=== PATIENT | female | born 1965 | race Hispanic/Latino ===

== ENCOUNTER 2018-07-08 15:07 | Inpatient (IN) | payer OTHER ==
[~2018-07-08] VITALS: Ht 154.9 cm; Wt 69.6 kg
[2018-07-08 15:50] LABS: APPEARANCE,URINE Clear (CLEAR); BILIRUBIN,URINE Negative (NEGATIVE); COLOR,URINE Yellow (YELLOW); GLUCOSE, URINE (UA) Negative (NEGATIVE); KETONES,URINE Negative (NEGATIVE); LEUKOCYTE ESTERASE ,URINE Negative (NEGATIVE); NITRATE,URINE Negative (NEGATIVE); OCCULT BLOOD,URINE Trace (NEGATIVE); PH,URINE 6.5 (5.0-8.0); PROTEIN,URINE Negative (NEGATIVE); UROBILINOGEN,URINE 0.2 mg/dL (0.2-1.0)
[2018-07-08] MEDS ORDERED: CHARCOAL/SORBITOL 50 GM/240 ML SUSP ONE (16:02)
[2018-07-08 16:14] LABS: BACTERIA,URINE Rare /HPF (None Seen); RBC,URINE None Seen /HPF (0-1); SQUAMOUS EPITHELIAL CELL,UR None Seen /HPF (0-2); WBC,URINE 0-1 /HPF (0-1)
[2018-07-08] MEDS ORDERED: ASPIRIN 325 MG TABLET ONE (16:29)
[2018-07-08 16:32] LABS: EOSINOPHILS % (AUTO) 19.3 % (0.0-8.0); HEMATOCRIT 39.6 % (36-48); LYMPHOCYTES % (AUTO) 24.5 % (21.0-51.0); MEAN CORPUSCULAR HEMOGLOBIN 32.3 pg (27.0-33.0); MEAN CORPUSCULAR HGB CONC 34.6 g/dL (32.0-36.0); MEAN CORPUSCULAR VOLUME 93.5 fL (79-99); MONOCYTES % (AUTO) 5.9 % (3.0-13.0); NEUTROPHILS % (AUTO) 49.3 % (40.0-77.0); NUCLEATED RED BLOOD CELLS 0.1 % (0.0-0.19); PLATELET COUNT (AUTO) 208 K/uL (130-400); RED BLOOD CELL COUNT(AUTO) 4.24 MIL/uL (4.00-5.50); WHITE BLOOD COUNT (AUTO) 9.6 K/uL (4.8-10.8)
[2018-07-08 16:49] LABS: POTASSIUM 3.9 mmol/L (3.5-5.1)
[2018-07-08 16:53] LABS: ALBUMIN 4.3 g/dL (3.5-5.0); BILIRUBIN,TOTAL 0.2 mg/dL (0.2-1.0); TOTAL PROTEIN, SERUM 7.8 g/dL (6.0-8.3)
[2018-07-08 17:39] LABS: ERYTHROCYTE SEDIMENTATION RATE 3 MM/HR (0-30)
[2018-07-08] MEDS ORDERED: ONDANSETRON HCL 4 MG/2 ML VIAL IV PRN (18:45)
[2018-07-08] MEDS ORDERED: ACETAMINOPHEN 325 MG TAB PO PRN (18:45)
[2018-07-08] MEDS ORDERED: IOHEXOL-350 75 ML VIAL IV ONE (19:00)
[2018-07-08] MEDS ORDERED: HYDRALAZINE HCL 20 MG/ML VIAL IV PRN (20:30)
[2018-07-08] MEDS ORDERED: HYDRALAZINE HCL 20 MG/ML VIAL ONE (20:31)
[2018-07-08] MEDS ORDERED: FAMOTIDINE/PF 20 MG/2 ML VIAL IV ONE (20:31)
[2018-07-08] MEDS: FAMOTIDINE/PF 20 MG/2 ML VIAL IV SCH (21:00)
[2018-07-08 21:20] VITALS: BP 135/80
--- NOTE | 2018-07-08 21:20 | NUR ---
Admission note: Admitted to floor via wheelchair. Amb indep. Fully awake and responsive. AOx3. Placed in bed comfortably. VS checked and recorded. Assessment done. ( See flow chart). Oriented to room and use of call light. Policies and procedures explained. Verbalized understanding. Home meds reconciled as ordered. Plan of care initiated. Kept monitored and observed for any unusual changes. Denies feeling of discomfort or weakness / numbness to extremities. No blurred vision or feeling of dizziness. No apparent distress noted. Cared for. For MRI of the brain and 2d-Echo in AM. For Neuro Consult in AM. Endorsed to Am shift accordingly.
[2018-07-08] MEDS ORDERED: CLOP75TA14 PO (23:51)
[2018-07-08] MEDS ORDERED: ASPI-555 PO (23:51)
[2018-07-08] MEDS ORDERED: LEVO100 PO (23:51)
[2018-07-08] MEDS ORDERED: LISI-613 PO (23:51)
[2018-07-09] VITALS: BP 138/76
[2018-07-09 04:00] VITALS: BP 134/70
[2018-07-09 06:26] LABS: HEMATOCRIT 41.7 % (36-48); MEAN CORPUSCULAR HEMOGLOBIN 32.5 pg (27.0-33.0); MEAN CORPUSCULAR HGB CONC 34.5 g/dL (32.0-36.0); MEAN CORPUSCULAR VOLUME 94.1 fL (79-99); NUCLEATED RED BLOOD CELLS 0.1 % (0.0-0.19); PLATELET COUNT (AUTO) 192 K/uL (130-400); RED BLOOD CELL COUNT(AUTO) 4.43 MIL/uL (4.00-5.50); RED CELL DISTRIBUTION WIDTH 14.7 % (11.0-15.5); WHITE BLOOD COUNT (AUTO) 7.1 K/uL (4.8-10.8)
[2018-07-09] MEDS: LEVOTHYROXINE 100 MCG TABLET PO SCH ×2 (06:33→08:30)
[2018-07-09 06:54] LABS: ALBUMIN 3.9 g/dL (3.5-5.0); BILIRUBIN,TOTAL 0.4 mg/dL (0.2-1.0); POTASSIUM 3.7 mmol/L (3.5-5.1); TOTAL PROTEIN, SERUM 7.4 g/dL (6.0-8.3)
[2018-07-09 07:01] LABS: HEMOGLOBIN A1C 5.9 % (4.0-6.0)
[2018-07-09 08:00] VITALS: BP 138/78
[2018-07-09] MEDS: FAMOTIDINE/PF 20 MG/2 ML VIAL IV SCH (08:29)
[2018-07-09] MEDS ORDERED: CLOPIDOGREL BISULFATE 75 MG TAB PO SCH (09:00)
[2018-07-09] MEDS ORDERED: ENOXAPARIN SODIUM 30 MG/0.3 ML SQ SCH (09:00)
[2018-07-09] MEDS ORDERED: LISINOPRIL 20 MG TABLET PO SCH (09:00)
[2018-07-09] MEDS ORDERED: ASPIRIN 81 MG EC TAB PO SCH (09:00)
[2018-07-09] MEDS ORDERED: GADODIAMIDE 10 MMOL/20 ML VIAL IV ONE (09:23)
--- NOTE | 2018-07-09 09:45 | NUR ---
COGNITIVE EVAL COMPLETE. COGNITIVE-LINGUISTIC ABILITIES WITHIN FUNCTIONAL LIMITS. PATIENT INFORMATION: Pt IS A 53 YEAR OLD MALE REFERRED FOR A COGNITIVE-LINGUISTIC EVALUATION SECONDARY TO DIAGNOSIS OF TIA. Pt COOPERATIVE DURING THE EVALUATION AND SERVED THE PRIMARY INFORMANT FOR MEDICAL AND SOCIAL HISTORY. Pt CURRENTLY ADMITTED SECONDARY TO TIA. Pt HAS A PAST MEDICAL HISTORY SIGNIFICANT FOR CVA X2, HYPERTENSION, HYPERLIPIDEMIA, LEFT CAROTID ENDARTERECTOMY, HYPOTHYROIDISM, X5, AND CURRENT SMOKER. EVALUATION: Pt AAOX3. Pt REQUESTS WANTS AND NEEDS INDEPENDENTLY. Pt INTELLIGIBLE AT 100% ACCURACY TO THE UNFAMILIAR LISTENER. Pt COMMUNICATING AT CONVERSATIONAL LEVEL WITH NO DEFICITS IDENTIFIED AT THIS TIME. Pt COMPLETED COGNITIVE-LINGUISTIC EVALUATION TARGETING: ORIENTATION, ATTENTION/CONCENTRATION, MEMORY (IMMEDIATE, SHORT-TERM AND LONG-TERM), PROBLEM SOLVING, LOGIC/REASONING/INFERENCE, THOUGHT ORGANIZATION, FUNCTIONAL MATH AND TELLING TIME. Pt ABLE TO COMPLETE TASKS WITH CORRECT AND TIMELY ANSWERS TO ALL SECTIONS. G-CODES SPOKEN LANGUAGE EXPRESSION: [id number] Addendum: 07/09/18 at 1159 by FELECIA MARTINEZ Amended: Links added.
--- NOTE | 2018-07-09 11:31 | NUR ---
DYSPHAGIA EVAL COMPLETE. -S/S OF ASPIRATION. RECOMMEND REGULAR, THIN LIQUID DIET; PILLS WHOLE WITH LIQUIDS. PATIENT INFORMATION: Pt IS A 53 Y.O. FEMALE REFERRED FOR A BEDSIDE DYSPHAGIA EVALUATION SECONDARY TO ADMITTING DIAGNOSIS TO RULE OUT TIA. Pt AAOX3 AND COOPERATIVE DURING THE EVALUATION. Pt HAS A PAST MEDICAL HISTORY SIGNIFICANT FOR CVA X2 (2014, 2016), HYPERTENSION, CAROTID ENDARTERECTOMY, HYPOTHYROIDISM, X5, CURRENT SMOKER. CHEST X-RAY NEGATIVE UPON ADMISSION. EVALUATION: SWALLOW FUNCTION AND EFFICIENCY WITHIN FUNCTIONAL LIMITS. ORAL MOTOR STRENGTH, COORDINATION, AND ROM WITHIN FUNCTIONAL LIMITS. LARYNGEAL ELEVATION/EXCURSION STRONG WITH TIMELY PHARYNGEAL RESPONSE. NO OVERT SIGNS OR SYMPTOMS OF ASPIRATION PRESENT AT BEDSIDE. VOCAL QUALITY CLEAR WITH NO THROAT CLEAR OR COUGH RESPONSE PRESENT. RECOMMENDATIONS: 1. REGULAR TEXTURE, THIN LIQUID DIET; PILLS WHOLE WITH LIQUIDS. 2. COMPENSATORY STRATEGIES (PROPHYLAXIS): *SEATED AT 90 DEGREE ANGLE G-CODES SWALLOWING: [id number] Addendum: 07/09/18 at 1147 by ERIS TOMAS [facility] Amended: Links added.
[2018-07-09 12:00] VITALS: BP 155/78
--- NOTE | 2018-07-09 13:45 | NUR ---
Nutrition Intervention: Nutrition consult due to R/O TIA. Pt. admitted with Dx of R/O TIA. Pt. NPO during visit earlier this morning- pending ELECTRONIC INSTALLER evaluation. S/P dysphagia evaluation- ELECTRONIC INSTALLER rec. Regular texture, thin liquids. Diet has been advanced to Regular. Labs reviewed(Alb 3.9, CHOL 261). LBM: 07/08/18. SR-19, elastic. BMI: 29, overweight. Recommendations: 1) Rec. Heart Healthy diet. 2) Continue to monitor pt's nutritional status. 3) Consult RD as nutrition concerns arise. Addendum: 07/09/18 at [address] Amended: Links added.
[2018-07-09] MEDS ORDERED: ATOR20TA65 PO (13:59)
[2018-07-09 16:00] VITALS: BP 143/82
[2018-07-09] MEDS ORDERED: ATORVASTATIN CALCIUM 20 MG TABLET PO SCH (21:00)
== END 2018-07-09 18:20 | disposition home or self-care (01) | DRG 68 ==
LOC: EDH 15:07 → OBSVTOIN 15:08 → EDHIP 15:08 → 3AH 21:05
PROVIDERS: ADMIT Internal Medicine; ATTEND Internal Medicine
DX: I65.21 Occlusion and stenosis of right carotid artery (principal); G45.9 Transient cerebral ischemic attack, unspecified; E03.9 Hypothyroidism, unspecified; E78.5 Hyperlipidemia, unspecified; F17.210 Nicotine dependence, cigarettes, uncomplicated; I10 Essential (primary) hypertension; I16.0 Hypertensive urgency; Z80.0 Family history of malignant neoplasm of digestive organs; Z86.73 Personal history of transient ischemic attack (TIA), and cerebral infarction without residual deficits; Z91.14 Patient's other noncompliance with medication regimen; Z84.1 Family history of disorders of kidney and ureter
CPT/HCPCS: 36415; 70450; 70496; 70498; 70553; 71045; 80053; 80061; 81001; 83036; 84484; 85025; 85027; 85651; 92522; 92610; 93005; 93306; A9579; G0378; J0360; J1650; J3490; Q9967

== ENCOUNTER 2018-11-09 17:05 | Emergency (ER) | payer SELFPAY ==
[~2018-11-09 17:05] MED LIST: ASPI-555 PO; ATOR20TA65 PO; CLOP75TA14 PO; LEVO100 PO; LISI-613 PO
[2018-11-09] MEDS ORDERED: ORPHENADRINE CITRATE 30 MG/ML ML ONE (17:38)
== END 2018-11-09 18:04 | disposition home or self-care (01) ==
LOC: EDH 17:05
DX: M62.838 Other muscle spasm (principal); M54.2 Cervicalgia; I10 Essential (primary) hypertension; E78.5 Hyperlipidemia, unspecified; Z86.73 Personal history of transient ischemic attack (TIA), and cerebral infarction without residual deficits; Z72.0 Tobacco use
CPT/HCPCS: 96372; 99283; J2360

== ENCOUNTER 2019-10-25 14:46 | Emergency (ER) | payer SELFPAY ==
[~2019-10-25 14:46] MED LIST changes: -ASPI-555 PO; +ASPI-556 PO
[2019-10-25 15:18] LABS: BASOPHILS % (AUTO) 0.6 % (0.0-5.0); EOSINOPHILS % (AUTO) 2.2 % (0.0-8.0); HEMATOCRIT 38.4 % (36-48); LYMPHOCYTES % (AUTO) 32.3 % (21.0-51.0); MEAN CORPUSCULAR HEMOGLOBIN 31.4 pg (27.0-33.0); MEAN CORPUSCULAR HGB CONC 34.6 g/dL (32.0-36.0); MEAN CORPUSCULAR VOLUME 90.6 fL (79-99); MONOCYTES % (AUTO) 6.5 % (3.0-13.0); PLATELET COUNT (AUTO) 234 K/uL (130-400); RED BLOOD CELL COUNT(AUTO) 4.24 MIL/uL (4.00-5.50); WHITE BLOOD COUNT (AUTO) 8.3 K/uL (4.8-10.8)
[2019-10-25 15:36] LABS: INR 0.92 (0.85-1.15); PARTIAL THROMBOPLASTIN TIME 29.6 SEC (26.3-35.5)
[2019-10-25 15:51] LABS: CARBON DIOXIDE 23 mmol/L (21-32); CHLORIDE 104 mmol/L (101-111); GLOMERULAR FILTR. RATE CALC 62 mL/min (>60); GLUCOSE,RANDOM 106 mg/dL (70-105); POTASSIUM 3.7 mmol/L (3.5-5.1); SODIUM SERUM 140 mmol/L (136-145); UREA NITROGEN, BLOOD 17 mg/dL (7-18)
[2019-10-25 15:55] LABS: ALANINE AMINOTRANSFERASE 31 U/L (12-78); ALBUMIN 3.8 g/dL (3.5-5.0); ASPARTATE AMINOTRANSFERASE 18 U/L (10-37); BILIRUBIN,TOTAL 0.2 mg/dL (0.2-1.0); LIPASE 106 U/L (114-286); TOTAL PROTEIN, SERUM 7.6 g/dL (6.0-8.3)
[2019-10-25 16:08] LABS: BILIRUBIN,DIRECT < 0.1 mg/dL (0.0-0.3)
[2019-10-25 19:25] LABS: AMPHET/METH SCREEN,URINE NEGATIVE (NEGATIVE); BARBITURATE SCREEN, URINE NEGATIVE (NEGATIVE); BENZODIAZEPINES SCREEN,URINE NEGATIVE (NEGATIVE); CANNABINOID SCREEN,URINE NEGATIVE (NEGATIVE); COCAINE SCREEN,URINE NEGATIVE (NEGATIVE); OPIATE SCREEN,URINE NEGATIVE (NEGATIVE); PHENCYCLIDINE SCREEN,URINE NEGATIVE (NEGATIVE)
== END 2019-10-25 22:34 | disposition home or self-care (01) ==
LOC: EDH 14:46
DX: R07.89 Other chest pain (principal); R51 Headache; I10 Essential (primary) hypertension; E78.5 Hyperlipidemia, unspecified; Z86.73 Personal history of transient ischemic attack (TIA), and cerebral infarction without residual deficits
CPT/HCPCS: 36415; 71045; 80048; 80076; 80305; 82550; 83690; 84484; 85025; 85378; 85610; 85651; 85730; 86140; 93005

== ENCOUNTER 2021-05-06 15:08 | Observation (INO) | payer OTHER ==
[~2021-05-06] VITALS: Ht 154.9 cm; Wt 63.5 kg
[~2021-05-06 15:08] MED LIST changes: -LISI-613 PO; +LISI20TA24 PO
[2021-05-06 15:35] LABS: BASOPHILS % (AUTO) 0.6 % (0.0-5.0); EOSINOPHILS % (AUTO) 3.2 % (0.0-8.0); HEMATOCRIT 43.2 % (36-48); LYMPHOCYTES % (AUTO) 32.7 % (21.0-51.0); MEAN CORPUSCULAR HEMOGLOBIN 29.6 pg (27.0-33.0); MEAN CORPUSCULAR HGB CONC 33.1 g/dL (32.0-36.0); MEAN CORPUSCULAR VOLUME 89.4 fL (79-99); MONOCYTES % (AUTO) 5.3 % (3.0-13.0); NEUTROPHILS % (AUTO) 57.8 % (40.0-77.0); PLATELET COUNT (AUTO) 215 K/uL (130-400); RED BLOOD CELL COUNT(AUTO) 4.83 MIL/uL (4.00-5.50); RED CELL DISTRIBUTION WIDTH 15.1 % (11.0-15.5)
[2021-05-06 15:38] LABS: APPEARANCE,URINE Clear (CLEAR); BILIRUBIN,URINE Negative (NEGATIVE); COLOR,URINE Yellow (YELLOW); GLUCOSE, URINE (UA) Negative (NEGATIVE); KETONES,URINE Negative (NEGATIVE); LEUKOCYTE ESTERASE ,URINE Negative (NEGATIVE); NITRATE,URINE Negative (NEGATIVE); OCCULT BLOOD,URINE Negative (NEGATIVE); PH,URINE 6.5 (5.0-8.0); PROTEIN,URINE Negative (NEGATIVE); UROBILINOGEN,URINE 0.2 mg/dL (0.2-1.0)
[2021-05-06 15:47] LABS: AMPHET/METH SCREEN,URINE NEGATIVE (NEGATIVE); BARBITURATE SCREEN, URINE NEGATIVE (NEGATIVE); BENZODIAZEPINES SCREEN,URINE NEGATIVE (NEGATIVE); CANNABINOID SCREEN,URINE NEGATIVE (NEGATIVE); COCAINE SCREEN,URINE NEGATIVE (NEGATIVE); OPIATE SCREEN,URINE NEGATIVE (NEGATIVE); PHENCYCLIDINE SCREEN,URINE NEGATIVE (NEGATIVE)
[2021-05-06] MEDS ORDERED: NITROGLYCERIN 0.4 MG SL TAB SL ONE (15:47)
[2021-05-06 15:50] LABS: PROTHROMBIN TIME 10.9 SEC (9.6-11.6)
[2021-05-06 15:51] LABS: PARTIAL THROMBOPLASTIN TIME 32.1 SEC (26.3-35.5)
[2021-05-06 15:53] LABS: BILIRUBIN,TOTAL 0.3 mg/dL (0.2-1.0); MAGNESIUM 2.2 mg/dL (1.80-2.40); POTASSIUM 4.2 mmol/L (3.5-5.1)
[2021-05-06 15:58] LABS: B-TYPE NATRIURETIC PEPTIDE 7 pg/mL (0-100)
[2021-05-06] MEDS ORDERED: NITROGLYCERIN 0.4 MG SL TAB SL PRN (16:00)
[2021-05-06] MEDS ORDERED: NITROGLYCERIN 1GM OINT 1 INCH/1GM TD SCH (16:00)
[2021-05-06] MEDS ORDERED: MORPHINE 2 MG SYG IVP PRN (18:00)
[2021-05-06] MEDS ORDERED: PANTOPRAZOLE 40 MG TAB DR PO SCH (18:30)
[2021-05-06 18:56] LABS: THYROID STIMULATING HORMONE 134.67 uIU/mL (0.36-3.74)
[2021-05-06 19:34] LABS: HEMOGLOBIN A1C 6.2 % (4.0-6.0)
[2021-05-06 20:00] VITALS: BP 134/62
[2021-05-06] MEDS ORDERED: NITROGLYCERIN PATCH 0.2 MG/HR TD SCH (21:00)
[2021-05-06] MEDS ORDERED: ATORVASTATIN 40 MG TABLET PO SCH (21:00)
[2021-05-07] MEDS ORDERED: ASPIRIN 81 MG EC TAB PO SCH (09:00)
[2021-05-07] MEDS ORDERED: PANTOPRAZOLE 40 MG TAB DR PO SCH (09:00)
[2021-05-07] MEDS ORDERED: CLOPIDOGREL 75MG TAB PO SCH (13:00)
== END 2021-05-06 21:15 | disposition left against medical advice (07) ==
LOC: EDH 15:08 → EDHIP 15:09
PROVIDERS: ADMIT Hospitalist; ATTEND Hospitalist
DX: I24.9 Acute ischemic heart disease, unspecified (principal); I73.9 Peripheral vascular disease, unspecified; I10 Essential (primary) hypertension; E78.5 Hyperlipidemia, unspecified; E03.9 Hypothyroidism, unspecified; R07.89 Other chest pain; E11.51 Type 2 diabetes mellitus with diabetic peripheral angiopathy without gangrene; N19 Unspecified kidney failure; E78.00 Pure hypercholesterolemia, unspecified; F17.200 Nicotine dependence, unspecified, uncomplicated; Z86.73 Personal history of transient ischemic attack (TIA), and cerebral infarction without residual deficits; Z98.891 History of uterine scar from previous surgery; Z79.82 Long term (current) use of aspirin; Z95.1 Presence of aortocoronary bypass graft; Z79.899 Other long term (current) drug therapy; Z98.890 Other specified postprocedural states
CPT/HCPCS: 36415; 71045; 80053; 80061; 80305; 81003; 82550; 83036; 83735; 83874; 83880; 84439; 84443; 84481; 84484 ×2; 85025; 85610; 85730; 93005; 93925; 99285; G0378 ×4

== ENCOUNTER 2022-04-28 13:31 | Emergency (ER) | payer OTHER ==
[~2022-04-28] VITALS: Ht 154.9 cm; Wt 63.5 kg
[~2022-04-28 13:31] MED LIST changes: +CLOP-31 PO; -CLOP75TA14 PO
[2022-04-28 14:05] LABS: BASOPHILS % (AUTO) 0.7 % (0.0-5.0); EOSINOPHILS % (AUTO) 3.5 % (0.0-8.0); LYMPHOCYTES % (AUTO) 36.5 % (21.0-51.0); MEAN CORPUSCULAR HEMOGLOBIN 32.1 pg (27.0-33.0); MEAN CORPUSCULAR HGB CONC 34.6 g/dL (32.0-36.0); MEAN CORPUSCULAR VOLUME 92.9 fL (79-99); MONOCYTES % (AUTO) 4.9 % (3.0-13.0); PLATELET COUNT (AUTO) 180 K/uL (130-400); RED CELL DISTRIBUTION WIDTH 13.4 % (11.0-15.5); WHITE BLOOD COUNT (AUTO) 5.7 K/uL (4.8-10.8)
[2022-04-28 14:17] LABS: CREATININE 1.1 mg/dL (0.5-1.5); POTASSIUM 3.4 mmol/L (3.5-5.1)
[2022-04-28 14:30] LABS: ALBUMIN 3.9 g/dL (3.5-5.0); TOTAL PROTEIN, SERUM 7.1 g/dL (6.0-8.3)
[2022-04-28] MEDS ORDERED: POTASSIUM BICARB/CIT AC 25 MEQ TABLET.EFF PO STA (14:34)
[2022-04-28] MEDS ORDERED: KETOROLAC 30MG VIAL (30MG/ML) IM ONE (15:00)
[2022-04-28 15:08] VITALS: BP 130/80
== END 2022-04-28 15:21 | disposition home or self-care (01) ==
LOC: EDH 13:31
DX: M94.0 Chondrocostal junction syndrome [Tietze] (principal); M79.10 Myalgia, unspecified site; E87.6 Hypokalemia; I10 Essential (primary) hypertension; E78.00 Pure hypercholesterolemia, unspecified; F17.200 Nicotine dependence, unspecified, uncomplicated; Z79.899 Other long term (current) drug therapy; Z79.82 Long term (current) use of aspirin; Z98.890 Other specified postprocedural states
CPT/HCPCS: 99285; 71045; 84484; 80053; 85025; 36415; 96372; 93005; J1885

== ENCOUNTER 2022-08-28 12:04 | Emergency (ER) | payer OTHER ==
[~2022-08-28] VITALS: Ht 154.9 cm; Wt 68.0 kg
[2022-08-28 12:42] LABS: BASOPHILS % (AUTO) 0.7 % (0.0-5.0); EOSINOPHILS % (AUTO) 2.5 % (0.0-8.0); HEMATOCRIT 42.4 % (36-48); MEAN CORPUSCULAR HEMOGLOBIN 31.6 pg (27.0-33.0); MONOCYTES % (AUTO) 6.8 % (3.0-13.0); NEUTROPHILS % (AUTO) 59.6 % (40.0-77.0); PLATELET COUNT (AUTO) 218 K/uL (130-400); RED BLOOD CELL COUNT(AUTO) 4.56 MIL/uL (4.00-5.50); RED CELL DISTRIBUTION WIDTH 13.2 % (11.0-15.5); WHITE BLOOD COUNT (AUTO) 7.5 K/uL (4.8-10.8)
[2022-08-28 12:51] LABS: POTASSIUM 4.6 mmol/L (3.5-5.1)
[2022-08-28 12:53] LABS: APPEARANCE,URINE CLEAR (CLEAR); BILIRUBIN,URINE NEGATIVE (NEGATIVE); COLOR,URINE YELLOW (YELLOW); GLUCOSE, URINE (UA) NEGATIVE (NEGATIVE); KETONES,URINE NEGATIVE (NEGATIVE); LEUKOCYTE ESTERASE ,URINE NEGATIVE Leu/uL (NEGATIVE); NITRATE,URINE NEGATIVE (NEGATIVE); OCCULT BLOOD,URINE SMALL (NEGATIVE); PH,URINE 5.5 (5.0-8.0); PROTEIN,URINE 10 mg/dL (NEGATIVE); UROBILINOGEN,URINE 0.2 mg/dL (0.2-1.0)
[2022-08-28 12:56] LABS: ALBUMIN 4.1 g/dL (3.5-5.0); TOTAL PROTEIN, SERUM 8.2 g/dL (6.0-8.3)
[2022-08-28 12:58] LABS: MUCUS,URINE RARE LPF (None Seen); SQUAMOUS EPITHELIAL CELL,UR RARE /HPF (0-2)
[2022-08-28] MEDS ORDERED: ACETAMINOPHEN WITH CODEINE 1 TAB TAB PO ONE (13:00)
[2022-08-28 13:46] LABS: INR 0.94 (0.85-1.15)
[2022-08-28] MEDS ORDERED: ACET-2079 PO (13:59)
[2022-08-28 14:30] VITALS: BP 118/72
== END 2022-08-28 14:53 | disposition home or self-care (01) ==
LOC: EDH 12:04
DX: S02.5XXA Fracture of tooth (traumatic), initial encounter for closed fracture (principal); M94.0 Chondrocostal junction syndrome [Tietze]; R07.89 Other chest pain; I10 Essential (primary) hypertension; E78.00 Pure hypercholesterolemia, unspecified; F17.200 Nicotine dependence, unspecified, uncomplicated; Z79.899 Other long term (current) drug therapy; Z98.890 Other specified postprocedural states; X58.XXXA Exposure to other specified factors, initial encounter; Y93.89 Activity, other specified; Y92.89 Other specified places as the place of occurrence of the external cause; Y99.8 Other external cause status
CPT/HCPCS: 36415; 71045; 80053; 81001; 83735; 84484; 85025; 85610; 93005

== ENCOUNTER 2023-05-27 16:24 | Emergency (ER) | payer BC, OTHER ==
[~2023-05-27] VITALS: Ht 154.9 cm; Wt 59.0 kg
[~2023-05-27 16:24] MED LIST changes: +ACET-2079 PO
[2023-05-27 18:19] LABS: SARS-CoV-2, RNA, NAAT NEGATIVE SARS CoV-2 (NEGATIVE)
[2023-05-27 18:23] LABS: INFLUENZA TYPE A Negative For Type A (NEGATIVE); INFLUENZA TYPE B Negative For Type B (NEGATIVE)
[2023-05-27] MEDS ORDERED: METH4TAB3 PO (18:57)
[2023-05-27] MEDS ORDERED: D-ME118S56 PO (18:57)
[2023-05-27] MEDS ORDERED: AZIT250T9 PO (18:57)
[2023-05-27] MEDS ORDERED: ALBUHFA IH (18:57)
[2023-05-27] MEDS: DEXAMETHASONE SOD PHOSPHATE 4 MG/ML 1ML VIAL IM ONE (19:31)
[2023-05-27 19:37] VITALS: BP 159/98; PULSE 92; RESP 16; O2SAT 99
[2023-05-30] MEDS ORDERED: FAMOTIDINE 20MG TAB ONE (09:18)
[2023-05-30] MEDS ORDERED: CLOPIDOGREL 75MG TAB ONE (09:18)
[2023-05-30] MEDS ORDERED: ASPIRIN 81MG CHEW TAB ONE (09:19)
[2023-05-30] MEDS ORDERED: BENZ200C53 PO (09:29)
[2023-05-30] MEDS ORDERED: AMIT25TA9 PO (09:29)
[2023-05-30] MEDS ORDERED: METO50TA18 PO (09:29)
[2023-05-30] MEDS ORDERED: HYDR-3421 PO (09:29)
[2023-05-30] MEDS ORDERED: ROSU20TA73 PO (09:29)
[2023-05-30] MEDS ORDERED: METH4TAB15 PO (09:29)
[2023-05-30] MEDS ORDERED: LEVO200C2 PO (09:29)
[2023-05-30] MEDS ORDERED: ROBITUSSIN PO (09:29)
[2023-05-30] MEDS ORDERED: AZIT250T9 PO (09:29)
== END 2023-05-27 19:47 ==
LOC: EDH 16:24
DX: J06.9 Acute upper respiratory infection, unspecified (principal); I10 Essential (primary) hypertension; E78.00 Pure hypercholesterolemia, unspecified; F17.200 Nicotine dependence, unspecified, uncomplicated; Z79.899 Other long term (current) drug therapy; Z20.822 Contact with and (suspected) exposure to COVID-19; Z98.890 Other specified postprocedural states
CPT/HCPCS: 99284; 71045; 87635; 87804 ×2; 96372; J1100